=== PATIENT | female | born 1965 | race Caucasian/White ===

== ENCOUNTER → 2017-05-05 | Outpatient (CLI) | payer BC ==
[~2017-05-05] MED LIST: ASPIRIN; CENTRUM PO; FLEXERIL PO; LEVAQUIN PO; LORTAB 7.5-5001 TAB PO; MULTI-VITAMIN1 TAB; PERCOCET PO; PERCODAN TABLET1 TAB PO; POSTURE600 MG PO; TYLOX 5/500 CAP1 CAP PO; VIT B-12 PO
--- NOTE | ~2017-05-05 | MY29 ---
[facility] A Service of [facility] RADIOLOGY TEXT RESULTS PATIENT: JESUS SILVERMAN LOCATION: [facility] : 63 UNIT #: [id number] AGE: [address]: Tracey Zarate MD SEX: F ORDER DR: [id number] [facility] [address] [facility] [place], [place] [address] [id number] O MR#: [id number] Acc #: [id number] NAME: JESUS SILVERMAN : 1965 SEX: F STUDY DATE/TIME: 05/05/2017 8:43 UNIT: [facility] ROOM: STUDY DESCRIPTION: MY STEFANIE SCREENING W/ CAD BILAT Attending Physician: Tracey Zarate M.D. Ordering Physician: Tracey Zarate M.D. Primary Care Physician: Tracey Zarate M.D. MEDICAL IMAGING REPORT This report is preliminary unless electronic signature is present EXAM Digital screening mammogram 05/05/2017 HISTORY 51-year-old woman no risk elevation. Interim weight loss since last exam. Prior left breast biopsy. Annual screen. COMPARISON Mammograms date to 07/29/2011 with most recent 03/29/2016. FINDINGS Digital imaging of each breast was completed utilizing screening protocol. Review includes FDA-approved CAD device. Breast parenchyma is homogeneously dense with a glandular parenchymal pattern bilaterally. Image-guided biopsy marker stable lower central left breast location. I see no suspicious mass characteristics. There are no suspicious microcalcifications and no architectural deformity. IMPRESSION Benign mammogram. Stable dense breast parenchyma. Annual screening recommended. Patients over the age of 40 are entered into a reminder system with target due date for the next mammogram. A result letter will also be sent to the patient. BIRADS: 2 Benign finding Dictated by... Vishal Connelly M.D. THIS IS AN ELECTRONICALLY VERIFIED REPORT [facility] A Service of [facility] RADIOLOGY TEXT RESULTS PATIENT: JESUS SILVERMAN LOCATION: [facility] : 63 UNIT #: [id number] AGE: [address]: Tracey Zarate MD SEX: F ORDER DR: Vishal Connelly M.D. at 05/05/2017 2:19 PM KAHLIL/rohith TD: 05/05/2017 10:22 JOB #: [id number] MEDICAL IMAGING REPORT Page 1 of 1 COPY
== END | disposition home or self-care (01) ==
LOC: CWCC 08:18
DX: Z12.31 Encounter for screening mammogram for malignant neoplasm of breast (principal); Z98.890 Other specified postprocedural states
CPT/HCPCS: G0202